=== PATIENT | male | born 1985 ===

== ENCOUNTER 2022-06-08 14:42 | Emergency (ER) | payer OTHER, SELFPAY ==
[2022-06-08 14:46] VITALS: BP 124/61; PULSE 67; TEMP 36.8; O2SAT 99
--- NOTE | 2022-06-08 15:33 | ED.GENADUL_ITS ---
Discharge Plan Disposition Patient Disposition: [facility] Condition: Improving Discharge Details Clinical Impression: Abscess of axilla, left ED Provider: Hair Whiteside Home Meds and New Rx's Prescriptions: New cephalexin 500 mg capsule 500 mg PO TID 7 Days Qty: 21 0RF Continued sulfamethoxazole-trimethoprim 800-160 mg Tablet 1 tab PO BID ibuprofen 200 mg Tablet 200 mg PO TID PRN buprenorphine-naloxone 8-2 mg Tablet, Sublingual 1 tab SUBLINGUAL DAILY Ortiz Peroxide 5% Gel 5 % topical BID PRN Discharge Instructions Instructions: Abscess (ED) Additional Instructions: Your wound was anesthetized and subsequently incised and drained for nearly 8 cc of purulent fluid. This has been sent for culture. A gauze wick was placed and the wound was dressed with a Mepilex dressing. This may stay in place for approximately 72 hours when he should have a wound check with nursing staff at the facility. The drain may be removed at that time, it often comes off with the Mepilex removal. Continue antibiotics as previously prescribed and begin an additional course of Keflex as prescribed. Return for any acute concern. Medical Decision Making 36-year-old male currently incarcerated at local care home. Reports approximately 1 week of left axilla irritation and abscess formation. He has been on Bactrim for approximately 3 days. Now with increased size and pain of the area. He is well-appearing with normal vital signs. There is approximately 3 x 5 cm fluctuant tender abscess in the left axilla. I consented the patient for the procedure, he was anesthetized, prepped and draped in the standard sterile fashion, initially had aspiration with 18-gauge needle and withdrawal of approximately 5 cc of purulent fluid with subsequent incision with 11 blade, exploration and irrigation of the wound with further drainage and placement of iodoform gauze wick. He will require repeat evaluation at the care home facility with nursing staff in approximately 3 days for wound check and removal of wick. I will add Keflex to his current antibiotic therapy with Bactrim. He is stable and improved at this time. HPI General Mode of arrival: ambulatory . Date/Time Provider Initiated Documentation: 06/08/22 14:54 . Limitations to Documentation: no limitations . Information obtained by: patient . History of Present Illness 36 year old M presents to the emergency department with the chief complaint of Left axilla abscess, described as moderate, Quality is described as dull, and is localized to the left and upper extremity. Patient reports no radiation. Patient started experiencing this day(s) and it has been constant. No relieving factors improve symptom(s), No exacerbating factors reported . Patient notes denies fever/chills. Patient did receive the following treatments prior to arrival, other (Bactrim) Related Data Home Medications Medication Instructions Recorded Confirmed Ortiz Peroxide 5% Gel 5 % topical BID PRN 06/08/22 buprenorphine 8 mg-naloxone 2 mg 1 tab sublingual DAILY 06/08/22 06/08/22 sublingual tablet cephalexin 500 mg capsule 500 mg PO TID 7 days #21 caps 06/08/22 ibuprofen 200 mg tablet 200 mg PO TID PRN 06/08/22 06/08/22 sulfamethoxazole 800 1 tab PO BID 06/08/22 06/08/22 mg-trimethoprim 160 mg tablet Previous Rx's Medication Instructions Recorded cephalexin 500 mg capsule 500 mg PO TID 7 days #21 caps 06/08/22 Allergies Allergy/AdvReac Type Severity Reaction Status Date / Time No Known Drug Allergies Allergy Unverified 06/08/22 15:08 poison marianna extract Allergy Unverified 06/08/22 15:08 General Stated Complaint: RashLesion GIANA: 3 Review of Systems Narrative: No fever or chills. Incarcerated, denies allergies. Taking buprenorphine and Bactrim. PFSH All Active Problems (Updated 06/08/22 @ 15:36 by Hair Whiteside MD) Abscess of axilla, left (Acute) Social History Smoking/Tobacco Use Status: Former Tobacco Use Smoking risk assessment performed?: Yes Alcohol Intake: former Drug use: Never Substance use type: does not use Exam Narrative Exam Narrative: GEN: awake, alert, oriented 3. Pleasant, well groomed, interactive. HEAD: Normocephalic, atraumatic ENT: Mucous membranes moist, oropharynx unremarkable, External ear exam unremarkable EYES: PERRL, EOMI NECK: Full ROM, no ELKIN, no menigismus CHEST/RESP no respiratory distress. The left axilla has a large fluctuant abscess measuring approximately 3 x 3 cm that is tender. No significant adenopathy present. ABDOMEN: Soft, nontender, no mass. +Bowel sounds EXT: Full ROM, no edema, no rash Neuro: Grossly normal neurologic exam, conversant, interactive. Psych: Speech fluent, thoughts congruent, affect normal Course Vital Signs Vital signs: Vital Signs Temperature 36.8 C 06/08/22 14:46 Pulse 67 06/08/22 14:46 Blood Pressure 124/61 06/08/22 14:46 Pulse Oximetry 99 06/08/22 14:46 Temperature 36.8 C 06/08/22 14:46 Temperature Source Temporal Artery Scan 06/08/22 14:46 Pulse 67 06/08/22 14:46 Respiratory Effort Non-Labored 06/08/22 14:51 Blood Pressure 124/61 06/08/22 14:46 Blood Pressure Position Sitting 06/08/22 14:46 Pulse Oximetry 99 06/08/22 14:46 Oxygen Delivery Method Room Air 06/08/22 14:46 Oxygen Flow Rate 0 06/08/22 14:46 Procedures Abscess I/D Site: Other (Left axilla) Side (if applicable): Left Local Anesthetic: Lidocaine 1% Amount of anesthesia used (mL): 4.5 Technique: Needle Aspiration and Incised with #11 Blade Amount of fluid expressed (mL): 8 Irrigation: Yes Packing used?: Iodoform
== END 2022-06-08 15:49 | disposition home or self-care (01) ==
LOC: ER 20:57
PROVIDERS: Emergency Provider Emergency Medicine
DX: L02.412 Cutaneous abscess of left axilla (principal); Z87.891 Personal history of nicotine dependence
CPT/HCPCS: 10060; 87077; 99283; 87070; 87186; 87205; 99284